=== PATIENT | female | born 2000 | race Caucasian/White ===

== ENCOUNTER 2023-04-02 13:36 | Inpatient (IN) ==
[2023-04-02] MEDS: LACTATED RINGER'S 1,000 ML IV PRN ×3 (14:36→23:08)
[2023-04-02] MEDS ORDERED: LIDOCAINE 1% LOCAL 20 ML VIAL INFIL PRN (16:49)
[2023-04-02] MEDS ORDERED: OXYTOCIN 30 UNITS/500 ML BAG IV PRN (16:49)
[2023-04-02] MEDS ORDERED: BUTORPHANOL TARTRATE 1 MG/ML VIAL IV PRN (16:59)
[2023-04-02 17:54] LABS: Hematocrit (blood only) 32.8 % (37.0-47.0); Hemoglobin 10.5 g/dl (12.0-16.0); Mean Corpuscular Volume 93.7 fL (80.0-100.0); Mean Platelet Volume 12.3 fL (9.4-12.4); Platelet Count 173 K/uL (130-400); RDW Coefficient of Variation 16.1 % (11.5-14.5); RDW Standard Deviation 54.3 fL (36.4-46.3); White Blood Count 14.91 K/ul (4.8-10.8)
[2023-04-02] MEDS ORDERED: fentaNYL citrate PF 100 MCG/2 ML VIAL ONE (22:05)
[2023-04-02] MEDS ORDERED: LIDOCAINE 2%/EPINEPHRINE 1:200,000 20 ML PF ONE (22:06)
[2023-04-02] MEDS ORDERED: BUPIVACAINE 0.25% PF 30 ML VIAL ONE (22:06)
[2023-04-02] MEDS ORDERED: SODIUM CHLORIDE 0.9% PF INJ 10 ML VIAL ONE (22:06)
[2023-04-02] MEDS ORDERED: ePHEDrine sulfate 50 MG/ML AMP ONE (22:06)
[2023-04-02] MEDS ORDERED: fentaNYL 2MCG/ML ROPIVACAINE 1.25MG/ML 100 ML BAG EPI ONE (22:07)
--- NOTE | 2023-04-02 23:09 | Anesthesiology Consultation ---
Date of Service April 02, 2023 Assessment & Plan Chart Review Chart Review: Acceptable Risk for Labor Epidural Consults Requested none History Height/Weight Height: 5 ft 3 in Weight: 81.647 kg Allergies Allergy/AdvReac Type Severity Reaction Status Date / Time nickel Allergy Rash Verified 04/02/23 17:38 Sulfa (Sulfonamide Allergy Rash Verified 04/02/23 17:38 Antibiotics) sulfamethoxazole Allergy Rash Verified 04/02/23 17:38 [From Bactrim] trimethoprim [From Bactrim] Allergy Rash Verified 04/02/23 17:38 MILK PRODUCTS Allergy Intermediate GI SYMPTOMS Uncoded 04/02/23 17:38 Medications Home Medications Medication Instructions Recorded Confirmed Last Taken omeprazole magnesium 20 mg 20 mg PO QAM 03/29/18 04/02/23 04/12/18 tablet,delayed release (Prilosec OTC) sertraline 25 mg tablet 25 mg PO DAILY 09/11/20 04/02/23 Unknown famotidine 20 mg tablet (Pepcid) 20 mg PO DAILY 12/28/22 04/02/23 Unknown prenat.vits,jw,qur-clbc-quqcr 1 tab PO DAILY 12/28/22 04/02/23 Unknown ondansetron HCl 4 mg tablet 4 mg PO Q8H #30 tabs 01/07/23 04/02/23 Unknown Active Medications Generic Name Dose Route Start Last Admin Trade Name Freq PRN Reason Stop Dose Admin Butorphanol Tartrate 1 mg 04/02/23 16:59 04/02/23 17:30 Butorphanol Tartrate 1 Mg/Ml Vial IV 05/02/23 16:58 1 mg Q1HWA PRN Administration Pain Lactated Ringer's 1,000 mls @ 999 mls/hr 04/02/23 14:18 04/02/23 23:08 Lr IV 05/02/23 14:17 125 mls/hr .Q1H1M PRN Administration L&D Protocol Protocol Past Medical History Medical History Anxiety Depression Gastric ulcer Insulin resistance PCOS (polycystic ovarian syndrome) Syncopal episodes Past Surgical History Surgical History History of cholecystectomy History of myringotomy History of tooth extraction Social History Smoking Status: Former smoker Do You Dip or Chew Tobacco: No Hx Alcohol Use: No Hx Substance Use: No substance use type: does not use Physical Exam Vital Signs Last Vital Signs Temp 36.6 C 04/02/23 19:00 Pulse 122 H 04/02/23 23:07 Resp 18 04/02/23 19:00 BP 127/66 04/02/23 23:06 Pulse Ox 99 04/02/23 23:07 Testing Laboratory Results 04/02/23 17:26
[2023-04-02] MEDS ORDERED: NALOXONE HCL 1 MG in SODIUM CHLORIDE 0.9% 1,000 ML IV PRN (23:11)
[2023-04-02] MEDS ORDERED: fentaNYL 2MCG/ML ROPIVACAINE 1.25MG/ML 100 ML BAG EPI PRN (23:11)
[2023-04-02] MEDS ORDERED: fentaNYL citrate PF 100 MCG/2 ML VIAL EPI PRN (23:11)
[2023-04-02] MEDS ORDERED: ROPIVACAINE 0.5% PF 5 MG/ML 20 ML VIAL EPI PRN (23:11)
[2023-04-02] MEDS ORDERED: fentaNYL citrate PF 100 MCG/2 ML VIAL EPI STA (23:11)
[2023-04-02] MEDS ORDERED: ePHEDrine sulfate 50 MG/ML AMP IV PRN (23:11)
[2023-04-02] MEDS ORDERED: BUPIVACAINE 0.25% PF 30 ML VIAL EPI STA (23:11)
[2023-04-02] MEDS ORDERED: LIDOCAINE 2% MPF LOCAL 5 ML VIAL EPI PRN (23:11)
[2023-04-02] MEDS ORDERED: SODIUM CHLORIDE 0.9% PF INJ 10 ML VIAL EPI STA (23:11)
[2023-04-02] MEDS ORDERED: diphenhydrAMINE 50 MG/ML VIAL IV PRN (23:11)
[2023-04-02] MEDS ORDERED: BUPIVACAINE 0.25% PF 30 ML VIAL EPI PRN (23:11)
[2023-04-02] MEDS ORDERED: SODIUM CHLORIDE 0.9% PF INJ 10 ML VIAL EPI PRN (23:11)
[2023-04-02] MEDS ORDERED: NALBUPHINE HCL INJ 10 MG/ML AMP IV PRN (23:11)
[2023-04-02] MEDS ORDERED: LIDOCAINE 2%/EPINEPHRINE 1:200,000 20 ML PF EPI STA (23:11)
[2023-04-02] MEDS ORDERED: NALOXONE HCL 0.4 MG/1 ML VIAL/CARP IV PRN (23:11)
[2023-04-02] MEDS ORDERED: ONDANSETRON INJ 2 MG/ML 2 ML VIAL ONE (23:18)
[2023-04-02] MEDS ORDERED: ONDANSETRON INJ 2 MG/ML 2 ML VIAL IV PRN (23:20)
[2023-04-03] MEDS ORDERED: OXYTOCIN 30 UNITS/500 ML BAG IV PRN ×2 (00:02→14:03)
--- NOTE | 2023-04-03 06:43 | Anesthesia Procedure Note ---
Date of Service April 03, 2023 Anesthesia Epidural Re-Dose Vital Signs Temp Pulse Resp BP Pulse Ox 36.7 C 93 H 18 116/53 L 95 04/03/23 04:30 04/03/23 06:39 04/03/23 06:30 04/03/23 06:39 04/03/23 06:38 Notes Pain Intensity: 5 Dilatation (cm): 5.0 Effacement (%): 80 Called by nursing to evaluate epidural as the patient is having increased pain. The epidural was re-dosed with the following medications (all medications via epidural route) after negative aspiration of the epidural catheter for CSF/HEME. 2% lidocaine w/ epi 1:200,000 5ml given to epidural. After Epidural Re-Dose Mental Status: alert / awake / arousable Pain: improving with treatment Airway Patency, RR, SpO2: stable & adequate BP & HR: stable & adequate
[2023-04-03] MEDS: LACTATED RINGER'S 1,000 ML IV PRN ×2 (07:05→12:29)
[2023-04-03] MEDS ORDERED: fentaNYL 2MCG/ML ROPIVACAINE 1.25MG/ML 100 ML BAG EPI ONE ×2 (08:30→12:02)
[2023-04-03] MEDS ORDERED: Nursing to Pharmacy Communication SCH (10:15)
--- NOTE | 2023-04-03 10:37 | Anesthesia Procedure Note ---
Date of Service April 03, 2023 Anesthesia Epidural Re-Dose Vital Signs Temp Pulse Resp BP Pulse Ox 98.8 F 106 H 18 118/69 94 04/03/23 09:48 04/03/23 10:33 04/03/23 09:48 04/03/23 10:33 04/03/23 10:33 Notes Pain Intensity: 7 Dilatation (cm): 7.5 Effacement (%): 90 Called by nursing to evaluate epidural as the patient is having increased pain. The epidural was re-dosed with the following medications after negative aspiration of the epidural catheter for CSF/HEME. 3mL of 0.25% Bupivacaine and 75 mcg of fentanyl After Epidural Re-Dose Mental Status: alert / awake / arousable Pain: improving with treatment Airway Patency, RR, SpO2: stable & adequate BP & HR: stable & adequate
--- NOTE | 2023-04-03 10:48 | History & Physical Report ---
Date of Service April 02, 2023 Assessment & Plan (1) Supervision of normal intrauterine in primigravida: Plan: Karuna is a 22-year G1, P0 presents in early labor. Category 1 tracing. GBS negative. Vitals within normal limits. (2) Normal labor: Admission and Anticipated Discharge Date Admission Date: April 02, 2023 History of Present Illness Primary Care Provider: NO PCP Karuna is a 22-year-old G1, P0 currently at 39 weeks 2 days gestational age presents in early labor. Patient was noted to make cervical exchange specialist labor evaluation. has been uncomplicated to date. Initial OB Labs Blood Type & RH A positivie Antibody Screen negative HCT/HGB 39.0/13.3 Platelets 248 Hep C IgG 13yrs+ Old negative Pap Test negative (04/02/21) Chlamydia negative Gonorrhea negative Rubella` immune RPR non reactive Urine Culture/Screen no growth HBsAg negative HIV negative MCV 91 QNatal- Low risk Allergies Allergy/AdvReac Type Severity Reaction Status Date / Time nickel Allergy Rash Verified 04/02/23 17:38 Sulfa (Sulfonamide Allergy Rash Verified 04/02/23 17:38 Antibiotics) sulfamethoxazole Allergy Rash Verified 04/02/23 17:38 [From Bactrim] trimethoprim [From Bactrim] Allergy Rash Verified 04/02/23 17:38 MILK PRODUCTS Allergy Intermediate GI SYMPTOMS Uncoded 04/02/23 17:38 Home Medications Medication Instructions Recorded Confirmed Type omeprazole magnesium 20 mg 20 mg PO QAM 03/29/18 04/02/23 History tablet,delayed release (Prilosec OTC) sertraline 25 mg tablet 25 mg PO DAILY 09/11/20 04/02/23 History famotidine 20 mg tablet (Pepcid) 20 mg PO DAILY 12/28/22 04/02/23 History prenat.vits,wj,lha-zbrx-cagcu 1 tab PO DAILY 12/28/22 04/02/23 History ondansetron HCl 4 mg tablet 4 mg PO Q8H #30 tabs 01/07/23 04/02/23 Rx Patient History Medical History Anxiety Depression Gastric ulcer Insulin resistance PCOS (polycystic ovarian syndrome) Syncopal episodes Surgical History History of cholecystectomy History of myringotomy History of tooth extraction Social History Smoking Status: Former smoker Tobacco Type: E-cigarettes / Vaping Do You Dip or Chew Tobacco: No; Hx Alcohol Use: No Hx Substance Use: No Preferred Language: [place] Communication Ability: Effective Exhibit Designer Required: No Beliefs That Will Affect Care: None marital status: Single marital status details: Jasper (24) [phone] Current Living Situation: Significant Other Current Living Situation Comment: [place] current occupational status: employed current occupation: [employer] Other Information That Helps Us Care for You: No Feels Safe at Home: Yes Safety Concerns: Feels Safe At This Time Assistive Devices: Contacts and Glasses Physical Exam Genitourinary: Exam per nurse Results & Data Vital Signs (Past 12 Hours) Vital Signs Temp Pulse Resp BP 04/02/23 13:48 36.7 C 113 H 20 120/69 04/02/23 19:00 18 04/02/23 19:00 36.6 C 18 04/02/23 19:00 93 H 04/02/23 19:00 116/71 04/02/23 17:02 71 04/02/23 17:02 108/58 L 04/02/23 13:47 113 H 120/69 Code Status & VTE Plan VTE Prophylaxis Plan VTE Prophylaxis will be ordered: No Coding Level of Care Code None Diagnoses Supervision of normal intrauterine in primigravida Z34.00 Normal labor O80; Z37.9
[2023-04-03] MEDS ORDERED: SODIUM CHLORIDE 0.9% PF INJ 10 ML VIAL ONE (12:01)
[2023-04-03] MEDS ORDERED: BUPIVACAINE 0.25% PF 30 ML VIAL ONE (12:01)
[2023-04-03] MEDS ORDERED: LIDOCAINE 2%/EPINEPHRINE 1:200,000 20 ML PF ONE (12:01)
[2023-04-03] MEDS ORDERED: ePHEDrine sulfate 50 MG/ML AMP ONE (12:01)
[2023-04-03] MEDS ORDERED: fentaNYL citrate PF 100 MCG/2 ML VIAL ONE (12:01)
[2023-04-03] MEDS ORDERED: ROPIVACAINE 0.5% PF 5 MG/ML 20 ML VIAL EPI PRN (12:25)
[2023-04-03] MEDS ORDERED: fentaNYL citrate PF 100 MCG/2 ML VIAL EPI PRN (12:25)
[2023-04-03] MEDS ORDERED: ONDANSETRON INJ 2 MG/ML 2 ML VIAL IV PRN (12:25)
[2023-04-03] MEDS ORDERED: LIDOCAINE 2%/EPINEPHRINE 1:200,000 20 ML PF EPI STA (12:25)
[2023-04-03] MEDS ORDERED: ePHEDrine sulfate 50 MG/ML AMP IV PRN (12:25)
[2023-04-03] MEDS ORDERED: fentaNYL citrate PF 100 MCG/2 ML VIAL EPI STA (12:25)
[2023-04-03] MEDS ORDERED: BUPIVACAINE 0.25% PF 30 ML VIAL EPI STA (12:25)
[2023-04-03] MEDS ORDERED: NALBUPHINE HCL INJ 10 MG/ML AMP IV PRN (12:25)
[2023-04-03] MEDS ORDERED: SODIUM CHLORIDE 0.9% PF INJ 10 ML VIAL EPI PRN (12:25)
[2023-04-03] MEDS ORDERED: LIDOCAINE 2% MPF LOCAL 5 ML VIAL EPI PRN (12:25)
[2023-04-03] MEDS ORDERED: BUPIVACAINE 0.25% PF 30 ML VIAL EPI PRN (12:25)
[2023-04-03] MEDS ORDERED: NALOXONE HCL 1 MG in SODIUM CHLORIDE 0.9% 1,000 ML IV PRN (12:25)
[2023-04-03] MEDS ORDERED: SODIUM CHLORIDE 0.9% PF INJ 10 ML VIAL EPI STA (12:25)
[2023-04-03] MEDS ORDERED: fentaNYL 2MCG/ML ROPIVACAINE 1.25MG/ML 100 ML BAG EPI PRN (12:25)
[2023-04-03] MEDS ORDERED: diphenhydrAMINE 50 MG/ML VIAL IV PRN (12:25)
[2023-04-03] MEDS ORDERED: NALOXONE HCL 0.4 MG/1 ML VIAL/CARP IV PRN (12:25)
[2023-04-03] MEDS ORDERED: ACETAMINOPHEN 325 MG TAB PO PRN (14:03)
[2023-04-03] MEDS ORDERED: bisacodyL 10 MG SUPP PR PRN (14:03)
[2023-04-03] MEDS ORDERED: HYDROCORTISONE ACETATE 25 MG SUPP PR PRN (14:03)
[2023-04-03] MEDS ORDERED: DIPHTHERIA/TETANUS/PERTUSSIS Vaccine (Tdap, Age 7+yrs) 0.5mL SYR/VL IM ONE (14:03)
--- NOTE | 2023-04-03 14:06 | Delivery Summary ---
Vaginal Delivery Summary Date of Service April 03, 2023 Vaginal Delivery Summary and 2nd Degree LAC EBL 200mL Patient progressed to 10 cm dilated 100% effaced +2 station pushed over intact perineum with epidural anesthesia and delivered a viable female with weight and Apgars pending. Patient pushed for approximately 20 minutes to achieve delivery. Head of the delivered in EZRA position rest due to right transverse. No nuchal cord was noted. Body shoulders quickly followed and was noted to be vigorous soon after delivery. A 1 minute delayed cord clamping was initiated after which the cord was double clamped and cut. Cord blood obtained. Attention was then turned to delivery the placenta was delivered intact with three-vessel cord gentle cord traction. Inspection of the perineum vagina and cervix there is noted to be a second-degree perineal laceration and bilateral periurethral lacerations which were repaired with 3-0 Vicryl. Needle sponge and counts are correct at the completion of the case. Both mother and stable in the immediate postdelivery period. MNP Vaginal Delivery Charge Delivery Type Details: and 2nd Degree LAC
--- NOTE | 2023-04-03 15:29 | Anesthesia Procedure Note ---
Date of Service April 03, 2023 Anesthesia Post Epidural Note Vital Signs Vital Signs: Temp Pulse Resp BP Pulse Ox 98.1 F 100 H 18 113/62 96 04/03/23 11:59 04/03/23 15:23 04/03/23 11:10 04/03/23 15:23 04/03/23 15:23 Pain Intensity Hip: Pain Intensity: 3 Notes Mental Status: alert / awake / arousable and participated in evaluation Nausea / Vomiting: adequately controlled Pain: adequately controlled Airway Patency, RR, SpO2: stable & adequate BP & HR: stable & adequate Hydration State: stable & adequate Neuraxial Anesthesia: was administered and sensory block is resolving Anesthetic Complications: no major complications apparent and Pt Satisfied with anesthetic care Epidural: Removed without complications and With tip intact
[2023-04-03] MEDS: BENZOCAINE 20% SPRY 85 APPLN/85 GM CAN EXT PRN (16:40)
[2023-04-03] MEDS: IBUPROFEN 600 MG TAB PO PRN (17:44)
[2023-04-03] MEDS: DOCUSATE SODIUM 100 MG CAP PO SCH (21:55)
[2023-04-04] MEDS: IBUPROFEN 600 MG TAB PO PRN ×4 (00:13→23:45)
--- NOTE | 2023-04-04 06:09 | Obstetrical Progress Note ---
Date of Service <Pranav Johnson DO - Last Filed: 04/04/23 07:42> April 04, 2023 Assessment & Plan <Pranav Johnson DO - Last Filed: 04/04/23 07:42> (1) Vaginal delivery: Plan Pt s/p , post- day 1, feels well today, eating, voiding, and ambulating well Pain well controlled with Motrin Routine post- care - OOB, ambulation, diet progression as tolerated After discharge, will have 6 week follow-up with Dr. Krishna <Silvestre Krishna MD - Last Filed: 04/04/23 07:59> (1) Vaginal delivery: Subjective <Pranav Johnson - Last Filed: 04/04/23 07:42> Ambulation: ambulating normally Voiding: no voiding problems Passing Gas:: Yes (no bowel movement since delivery) Diet Tolerance:: regular diet Lochia:: Moderate Feeding Type:: breast feeding Pain well controlled with Motrin Review of Systems -Denies fever or chills -Denies dyspnea, chest pain, or palpitations -Denies breast pain -Denies dysuria -Denies headache or changes in vision Physical Exam <Pranav Johnson - Last Filed: 04/04/23 07:42> General: Alert and oriented. No acute distress Cardiac: Regular rate and rhythm, no murmurs appreciated Respiratory: Lungs clear to auscultation bilaterally, No increased work of breathing Abdominal: Soft, non-tender, non-distended. Bowel sounds present. Uterus: Uterine fundus firm, palpable above umbilicus Extremities: No lower extremity edema, calves non-tender bilaterally Results & Data <Pranav Johnson - Last Filed: 04/04/23 07:42> Vital Signs (Past 12 Hours) Vital Signs Temp Pulse Resp BP Pulse Ox O2 Del Method 04/04/23 03:45 36.5 C 79 18 111/72 97 Room Air 04/04/23 00:15 36.5 C 81 18 109/71 97 Room Air 04/03/23 19:30 37.2 C 112 H 16 113/71 98 Room Air <Silvestre Krishna MD - Last Filed: 04/04/23 07:59> Co-Signing Physician Notes Patient seen with resident and agree with the above findings and plan. Routine care Resident Activity Tracking <Pranav Johnson DO - Last Filed: 04/04/23 07:42> Resident Involvement: Resident Care Provided Care Provided: OB Delivery
[2023-04-04] MEDS: DOCUSATE SODIUM 100 MG CAP PO SCH ×2 (07:53→22:04)
[2023-04-04] MEDS: PRENATAL VITAMIN 1 TAB PO SCH (07:53)
[2023-04-04] MEDS: FERROUS SULFATE 325 MG TAB PO SCH (07:53)
[2023-04-04] MEDS: SERTRALINE HCL 50 MG TABLET PO SCH (09:49)
[2023-04-04] MEDS: PANTOprazole 40 MG TAB PO SCH (09:50)
[2023-04-04] MEDS ORDERED: bisacodyL 5 MG TABEC PO SCH (20:00)
[2023-04-05] MEDS: IBUPROFEN 600 MG TAB PO PRN ×2 (04:47→13:03)
--- NOTE | 2023-04-05 07:08 | Obstetrical Progress Note ---
Date of Service <Pranav Johnson DO - Last Filed: 04/05/23 08:01> April 05, 2023 Assessment & Plan <Pranav Johnson DO - Last Filed: 04/05/23 08:01> (1) Vaginal delivery: Pt s/p , post- day 2, feels well today, eating, voiding, and ambulating well but no bowel movement since delivery Pain well controlled with Motrin Routine post- care - OOB, ambulation, diet progression as tolerated Likely discharge today After discharge, will have 6 week follow-up with Dr. Krishna <Albaro Carrasco MD, FACOG - Last Filed: 04/05/23 19:19> (1) Vaginal delivery: Subjective <Pranav Johnson DO - Last Filed: 04/05/23 08:01> Ambulation: ambulating normally Voiding: no voiding problems Passing Gas:: Yes (no bowel movement since delivery) Diet Tolerance:: regular diet Lochia:: Small Feeding Type:: breast feeding (with formula supplementation) Pain well controlled with Motrin Review of Systems -Denies fever or chills -Denies dyspnea, chest pain, or palpitations -Denies breast pain -Denies dysuria -Denies headache or changes in vision Physical Exam <Pranav Johnson DO - Last Filed: 04/05/23 08:01> General: Alert and oriented. No acute distress Cardiac: Regular rate and rhythm, no murmurs appreciated Respiratory: Lungs clear to auscultation bilaterally, No increased work of breathing Abdominal: Soft, non-tender, non-distended. Bowel sounds present. Uterus: Uterine fundus firm, palpable below umbilicus Extremities: No lower extremity edema, calves non-tender bilaterally Results & Data <Pranav Johnson DO - Last Filed: 04/05/23 08:01> Vital Signs (Past 12 Hours) Vital Signs Temp Pulse Resp BP BP Pulse Ox O2 Del Method 04/04/23 23:30 36.7 C 78 18 103/78 99 Room Air 04/04/23 19:40 36.7 C 94 H 20 106/67 97 Room Air <Albaro Carrasco MD, FACOG - Last Filed: 04/05/23 19:19> Co-Signing Physician Notes Resident Physician Supervision Note: I was present with [Name of resident] during the history and exam. I discussed the case with the resident and agree with the findings and plan as documented in the note. Any exceptions or clarifications are listed here: [None] Documented By: Albaro Carrasco MD, FACOG Resident Activity Tracking <Pranav Johnson DO - Last Filed: 04/05/23 08:01> Resident Involvement: Resident Care Provided Care Provided: OB Delivery
[2023-04-05] MEDS: DOCUSATE SODIUM 100 MG CAP PO SCH (08:02)
[2023-04-05] MEDS: FERROUS SULFATE 325 MG TAB PO SCH (08:03)
[2023-04-05] MEDS: PRENATAL VITAMIN 1 TAB PO SCH (08:03)
[2023-04-05] MEDS: SERTRALINE HCL 50 MG TABLET PO SCH (09:41)
[2023-04-05] MEDS: PANTOprazole 40 MG TAB PO SCH (09:41)
[2023-04-05] MEDS: BENZOCAINE 20% SPRY 85 APPLN/85 GM CAN EXT PRN (11:08)
== END 2023-04-05 18:30 | disposition home or self-care (01) | DRG 807 ==
LOC: OPB 13:36 → 4S1 13:37 → 4E2 04-03 16:35